=== PATIENT | male | born 1955 | race Hispanic/Latino ===

== ENCOUNTER 2024-05-09 13:23 | Emergency (ER) | payer MEDICARE, OTHER | END 2024-05-09 14:27 | disposition home or self-care (01) | LOC: MADERS 13:23 | DX: J44.1 Chronic obstructive pulmonary disease with (acute) exacerbation (principal); I10 Essential (primary) hypertension; F17.210 Nicotine dependence, cigarettes, uncomplicated | CPT/HCPCS: 87428; 99283 ==